=== PATIENT | male | born 1970 | race Caucasian/White ===

== ENCOUNTER → 2018-08-19 | Outpatient (CLI) | payer OTHER ==
[~2018-08-19] MED LIST: ACETAMINOPHEN-H1 TA2 PO; Augmentin Xr 101 TER PO; HYDROCODONE BIT1 T11 PO; PENICILLIN VK500 MG PO; Peridex 473 ML473 ML PO
== END | disposition home or self-care (01) ==
LOC: US 08:44
DX: R10.11 Right upper quadrant pain (principal); M79.604 Pain in right leg; M79.605 Pain in left leg; R20.0 Anesthesia of skin; R20.2 Paresthesia of skin; R74.0 Nonspecific elevation of levels of transaminase and lactic acid dehydrogenase [LDH]

== ENCOUNTER → 2018-09-22 | Outpatient (CLI) | payer OTHER ==
[2018-09-22 13:37] LABS: BASO # 0.1 10*3/uL (0.0-0.1); BASO % 1.1 % (0.0-1.0); EOS % 0.6 % (1.0-4.0); HEMATOCRIT 42.2 % (42.0-52.0); HEMOGLOBIN 14.8 g/dl (14.0-18.0); LYMPH # 2.1 10*3/uL (1.3-4.4); LYMPH % 31.6 % (27.0-41.0); MEAN CELL VOLUME 96.8 fl (80.0-94.0); MEAN CORPUSCULAR HGB 33.9 pg (27.0-31.0); MEAN CORPUSCULAR HGB CONC 35.1 g/dl (33.0-37.0); MEAN PLATELET VOLUME 9.8 fl (9.6-12.3); MONO # 0.8 10*3/uL (0.1-1.0); MONO % 11.8 % (3.0-9.0); NEUT # 3.6 10*3/uL (2.3-7.9); NEUT % 54.6 % (47.0-73.0); PLATELET COUNT AUTOMATED 129 10*3/uL (130-400); RED BLOOD COUNT 4.36 10*6/uL (4.50-5.90); RED CELL DISTRI WIDTH 13.9 % (0-14.5); WHITE BLOOD COUNT 6.6 10*3/uL (4.8-10.8)
[2018-09-22 14:03] LABS: ALBUMIN 3.6 gm/dl (3.1-4.5); ALKALINE PHOSPHATASE 106 U/L (45-117); BUN 4 mg/dl (7-24); CHLORIDE 100 mmol/L (98-107); CREATININE 0.69 mg/dL (0.70-1.30); POTASSIUM 3.8 mmol/L (3.5-5.1); SGOT/AST 80 IU/L (3-35); SGPT/ALT 80 U/L (12-78); SODIUM 136 mmol/L (136-145)
[2018-09-23 06:08] LABS: HEPATITIS B SURFACE AG Negative (Negative); HEPATITIS C VIRUS ANTIBODY <0.1 s/co (0.0-0.9)
== END | disposition home or self-care (01) ==
LOC: LAB 12:41
PROVIDERS: Family Medicine
DX: G63 Polyneuropathy in diseases classified elsewhere (principal)

== ENCOUNTER 2019-06-01 03:15 | Inpatient (IN) | payer OTHER ==
[~2019-06-01] VITALS: Ht 177.8 cm; Wt 57.4 kg
[2019-06-01] VITALS (10 sets, daily range): BP systolic 114–148; BP diastolic 57–98
--- NOTE | ~2019-06-01 | PR ---
[place], [place] PROGRESS NOTE NAME: BELEN RIVERA UNIT #: [id number] ROOM: 506 DOCTOR: KATRINA ROD,MARRY BIRTHDATE: [birth year] DOS: 06/06/2019 ADDENDUM This is an addendum to the progress note done by the resident, Dr. Maldonado. I had the [id number] encounter with the patient. I agree with the assessment and plan. I co-formulated the plan with the resident. I reviewed the labs and imaging, made the necessary changes in the note. Marry Herndon MD CM:PNTRANS [id number] MARRY HERNDON MD 06/30/19 0612 interface
--- NOTE | ~2019-06-01 | EKG ---
[place], [place] ELECTROCARDIOGRAM REPORT NAME: BELEN RIVERA UNIT #: [id number] ROOM: [facility] DOCTOR: CHIDI DRAFT REPORT BIRTHDATE: [birth year] [facility] Test Date: 2019-06-01 Test Time: 03:51:41 Pat Name: BELEN RIVERA Department: Room: [facility] Gender: M [employer] Worker: : 1970 Requested By: JULIA WILLIAM Order Number: [id number] Reading MD: Roldan Mendez MD Measurements Intervals [place] Rate: 108 P: 56 WV: 160 QRS: 31 QRSD: 83 T: 66 QT: 325 QTc: 436 Interpretive Statements Sinus tachycardia Borderline T abnormalities, lateral leads Borderline ST elevation, anterior leads No previous ECG available for comparison Electronically Signed On 06-01-2019 11:22:36 PDT by Roldan Mendez MD CM:EKGRPT:ELECTROCARDIOGRAM REPORT [id number] JULIA IRAHETA DRAFT REPORT JULIA WILLIAM DO
--- NOTE | ~2019-06-01 | CON ---
[place], [place] REPORT OF CONSULTATION NAME: BELEN RIVERA UNIT #: [id number] ROOM: [facility] DOCTOR: MARRY BURGOS MD BIRTHDATE: [birth year] DOS: 06/04/2019 REASON FOR CONSULTATION: Pneumonia. CHIEF COMPLAINT: Acute onset seizure. HISTORY OF PRESENT ILLNESS: This is a 48-year-old male, heavy alcoholic, presenting with a seizure. Currently, he is in the ICU closely monitored. He had episodes of confusion, right now he is able to provide some history. Overnight, he had some high-grade temperatures T-max of 102.0. His labs reveal leukocytosis of 14.2. His chest x-ray is now showing right lower lobe questionable opacities. Initially, he was kept on vancomycin and Zosyn. Currently, he is on clindamycin. ID has been consulted for further management. PAST MEDICAL HISTORY: Significant for dental abscess, facial abscess, facial cellulitis, polyneuropathy, lower extremity. PAST SURGICAL HISTORY: None. SOCIAL HISTORY: Alcoholic, smoker. No illicit drug use. FAMILY HISTORY: Father had hypertension. Brother hypertension. ALLERGIES: No known drug allergies. MEDICATIONS: Reviewed. REVIEW OF SYSTEMS: Twelve-point review of system is done. Pertinent negative and positive included in HPI, rest are noncontributory. PHYSICAL EXAMINATION: VITAL SIGNS: Current vitals include temperature 99.0, pulse rate 98, respiratory rate 24, blood pressure 163/101. Oxygen saturation 100% on room air. GENERAL: The patient is alert, oriented x 2, not completely oriented. He is still having some nonpurposeful movement of her hands. HEENT: Atraumatic, normocephalic. PERRLA. EOMI. OROPHARYNX: Poor dentition. RESPIRATORY: Air entry bilaterally equal. Mild crackles at the right lower lung. CARDIOVASCULAR: S1, S2, tachycardic. ABDOMEN: Soft, nontender, nondistended. Bowel sounds present. EXTREMITIES: No pedal edema. LABORATORY DATA AND IMAGING: Reviewed, mentioned in HPI. ASSESSMENT: 1. Aspiration pneumonia in an alcoholic. 2. Seizure disorder. 3. Delirium tremens. [place], [place] REPORT OF CONSULTATION NAME: BELEN RIVERA UNIT #: [id number] ROOM: [facility] DOCTOR: KATRINA ROD,MARRY BIRTHDATE: [birth year] PLAN: At this time, he does have some high-grade fevers, leukocytosis, questionable developing right lower lobe infiltrate. I will keep him on Unasyn to cover for community-acquired organisms. Repeat chest x-ray in 2-3 days. Check strep and Legionella urine antigen. Check CRP. Thank you for your consult. Please call for any questions. Marry Burgos MD CM:CONSTR:REPORT OF CONSULTATION [id number] 06/05/19 0017 interface
[2019-06-01 03:48] LABS: BASO # 0.1 10*3/uL (0.0-0.1); BASO % 0.5 % (0.0-1.0); EOS % 0.1 % (1.0-4.0); HEMATOCRIT 42.1 % (42.0-52.0); HEMOGLOBIN 14.9 g/dl (14.0-18.0); LYMPH # 1.1 10*3/uL (1.3-4.4); LYMPH % 11.1 % (27.0-41.0); MEAN CELL VOLUME 98.6 fl (80.0-94.0); MEAN CORPUSCULAR HGB 34.9 pg (27.0-31.0); MEAN CORPUSCULAR HGB CONC 35.4 g/dl (33.0-37.0); MEAN PLATELET VOLUME 9.2 fl (9.6-12.3); MONO # 1.2 10*3/uL (0.1-1.0); MONO % 11.9 % (3.0-9.0); NEUT # 7.7 10*3/uL (2.3-7.9); NEUT % 75.9 % (47.0-73.0); PLATELET COUNT AUTOMATED 145 10*3/uL (130-400); RED BLOOD COUNT 4.27 10*6/uL (4.50-5.90); RED CELL DISTRI WIDTH 13.6 % (0-14.5); WHITE BLOOD COUNT 10.2 10*3/uL (4.8-10.8)
[2019-06-01 04:06] LABS: ALBUMIN 3.2 gm/dl (3.1-4.5); ALKALINE PHOSPHATASE 125 U/L (45-117); BUN 4 mg/dl (7-24); CHLORIDE 91 mmol/L (98-107); CREATININE 0.87 mg/dL (0.70-1.30); POTASSIUM 3.4 mmol/L (3.5-5.1); SGOT/AST 30 IU/L (3-35); SGPT/ALT 29 U/L (12-78); SODIUM 127 mmol/L (136-145); TOTAL PROTEIN 8.3 gm/dL (6.4-8.2)
[2019-06-01 04:10] LABS: ACETAMINOPHEN (TYLENOL) < 2.0 ug/ml (10-30); ETHYL ALCOHOL < 3.0 mg/dl (<3); TROPONIN I < 0.015 ng/ml (<0.045)
--- NOTE | 2019-06-01 04:39 | NUR ---
PATIENT ALERT AND ORIENTED AT THIS TIME. PATIENT AWAKE IN BED TALKING WITH FAMILY AT BEDSIDE. RESP EASY AND NONLABORED. NO DISTRESS NOTED. RN WILL CONT TO MONITOR
[2019-06-01 05:05] LABS: BILIRUBIN NEGATIVE (NEGATIVE); BLOOD NEGATIVE (NEGATIVE); CLARITY SL CLOUDY (CLEAR); COLOR YELLOW (YELLOW); GLUCOSE NEGATIVE (NEGATIVE); KETONE NEGATIVE (NEGATIVE); LEUKO ESTERASE NEGATIVE (NEGATIVE); NITRITE NEGATIVE (NEGATIVE); SPECIFIC GRAVITY 1.015 (1.005-1.030)
[2019-06-01 05:11] LABS: RBC 0-2 rbc/hpf (0-2)
[2019-06-01 05:12] LABS: BACTERIA 2+; HYALINE CAST 0-2
[2019-06-01 05:14] LABS: URINE AMPHETAMINES < 1000 (1000ng/ml); URINE BARBITURATES < 200 (200ng/ml); URINE BENZODIAZEPINES < 200 (200ng/ml); URINE CANNABINOIDS (THC) < 50 (50ng/ml); URINE COCAINE < 300 (300ng/ml); URINE METHADONE < 300 (300ng/ml); URINE OPIATES < 300 (300ng/ml); URINE PHENCYCLIDINE < 25 (25ng/ml)
--- NOTE | 2019-06-01 06:20 | NUR ---
A 48, admitted to ICCU, under the services of FARZAD Weber DO with a diagnosis of HYPONATREMIA. Chief complaint is ETOH WITHDRAWL/SEIZURE. Patient arrived via bed from ER. Monitor applied. Initial assessment completed. Vital signs taken and recorded. FARZAD WEBER DO notified of admission to the unit. Orders received. See assessment for past medical history, medications and allergies. Patient and/or family oriented to unit. [facility] ICCU visitation policy reviewed. Clothing/patient valuable form completed. NILES SHELLEY
--- NOTE | 2019-06-01 06:29 | NUR ---
SCAB NOTED TO THE RIGHT KNEE, NO DRAINAGE NOTED, NOTHING OPEN. NO PHOTO TAKEN
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
--- NOTE | 2019-06-01 09:21 | NUR ---
MEDICATED WITH ATIVAN 2MG IV FOR RESTLESSNESS, HAND TREMORS AND SOME CONFUSION.
--- NOTE | 2019-06-01 10:32 | NUR ---
Occupational therapy eval attempted but patient was resting in his room. Nurse asked that he be left to sleep at this time as he was recently medicated because of alcohol withdrawal. Will attempt OT eval at a later date. Nu Nam S/OT Karuna Baxter OTR/L
--- NOTE | 2019-06-01 10:32 | NUR ---
PHYSICAL THERAPY Patient sleeping. Nursing reports patient was recently medication, and requests PT try again later. Will attempt at a later time/date. Thank you. Mariza Azul,PT,DPT.
--- NOTE | 2019-06-01 12:38 | NUR ---
WOKE UP TO TAKE MED'S THEN FELL BACK ASLEEP.
--- NOTE | 2019-06-01 13:34 | NUR ---
Occupational therapy eval attempted but patient was still resting in his room. Nurse asked that he be left to sleep at this time as he was recently medicated because of alcohol withdrawal. Will attempt OT eval at a later date. Nu Nam S/OT Karuna Baxter OTR/L
--- NOTE | 2019-06-01 13:34 | NUR ---
PHYSICAL THERAPY Physical therapy evaluation attempted. Patient sleeping at this time. Nursing request to hold on PT this afternoon to allow patient to sleep following medications earlier this date. Will try again at a later date. Thank you. Mariza Azul,PT,DPT.
--- NOTE | 2019-06-01 20:05 | NUR ---
PT LAYING ON LT SIDE. BED EXIT ALARM REMAINS ON FOR PT SAFETY.
--- NOTE | 2019-06-01 23:09 | NUR ---
NICOTROL INHALER PER PT REQUEST. BED EXIT ALARM REMAINS ON.
[2019-06-02] VITALS: BP 124/60
[2019-06-02 04:00] VITALS: BP 140/90
--- NOTE | 2019-06-02 04:05 | NUR ---
BED EXIT ALARM SOUNDS. PT AWAKE, MONITOR LEADS OFF, STATES "GOING TO MY ROOM." REORIENTED PT AND PT STATES "I KNOW THAT. MY BROTHER LIVES RIGHT AROUND THE CORNER." PT TREMULOUS, EYES WIDE OPEN, C/O CAN'T SLEEP "BECAUSE OF THE ARCADE AND THE CLOWNS GIGGLING OUT THERE." MEDICATED WITH ATIVAN. INSTRUCTED NOT TO GET OOB WITHOUT ASSISTANCE. BED EXIT REMAINS ON.
--- NOTE | 2019-06-02 05:06 | NUR ---
PT VOIDED IN URINAL AND ALL OVER HIMSELF AND BED. GOWN, NEW PAJAMA BOTTOMS, AND ALL LINENS CHANGED. PT WITH TREMORS, CONFUSED, AND UNCOOPERATIVE. ST 120'S - 130'S. ATIVAN AT 0400 NOT EFFECTIVE.
--- NOTE | 2019-06-02 05:10 | NUR ---
UPDATED SHIFT DIRECTOR ON PT STATUS.
--- NOTE | 2019-06-02 06:15 | NUR ---
PT STATED HE WAS LEAVING. CONTINUES TO PULL IV PATCHES OFF AND ATTEMPT TO GET OOB. DR BAUER NOTIFIED OF PT'S INCREASED AGITATION AND DESIRE TO LEAVE.
--- NOTE | 2019-06-02 06:17 | NUR ---
PT WAS GIVEN IV ATIVAN AT [address] XAVIER REPLACING MONITOR PATCHES/LEADS AND REEXPLAINING PLAN OF CARE TO PT. BED EXIT ALARM REMAINS ON.
--- NOTE | 2019-06-02 06:25 | NUR ---
PT ONLY SLIGHTLY CALMER SINCE ATIVAN AT 0610. HE IS STARTING TO HALLUCINATE AND TALK TO OTHERS NOT THERE.
[2019-06-02 06:46] LABS: ALBUMIN 2.9 gm/dl (3.1-4.5); BASO # 0.1 10*3/uL (0.0-0.1); BASO % 0.6 % (0.0-1.0); BUN 6 mg/dl (7-24); CHLORIDE 101 mmol/L (98-107); CREATININE 0.68 mg/dL (0.70-1.30); EOS # 0.1 10*3/uL (0.0-0.4); EOS % 0.9 % (1.0-4.0); HEMATOCRIT 38.3 % (42.0-52.0); LYMPH # 2.6 10*3/uL (1.3-4.4); LYMPH % 24.1 % (27.0-41.0); MEAN CORPUSCULAR HGB 34.9 pg (27.0-31.0); MEAN CORPUSCULAR HGB CONC 33.9 g/dl (33.0-37.0); MEAN PLATELET VOLUME 10.6 fl (9.6-12.3); MONO # 0.9 10*3/uL (0.1-1.0); MONO % 8.9 % (3.0-9.0); NEUT # 6.9 10*3/uL (2.3-7.9); NEUT % 65.2 % (47.0-73.0); PLATELET COUNT AUTOMATED 138 10*3/uL (130-400); POTASSIUM 3.4 mmol/L (3.5-5.1); RED BLOOD COUNT 3.72 10*6/uL (4.50-5.90); RED CELL DISTRI WIDTH 13.6 % (0-14.5); SGOT/AST 118 IU/L (3-35); SGPT/ALT 78 U/L (12-78); SODIUM 137 mmol/L (136-145); TOTAL PROTEIN 7.5 gm/dL (6.4-8.2); WHITE BLOOD COUNT 10.6 10*3/uL (4.8-10.8)
[2019-06-02 06:47] LABS: ALKALINE PHOSPHATASE 104 U/L (45-117)
--- NOTE | 2019-06-02 06:53 | NUR ---
LAYING SIDEWAYS IN BED. PULLING AT MONITOR PATCHES. TALKING TO SELF. + TREMORS...ATIVAN GIVEN ORDERED.
[2019-06-02 08:00] VITALS: BP 133/91
--- NOTE | 2019-06-02 09:10 | NUR ---
CONTINUES TO PULL CLINIC MGR OFF, RESTLESS. KICKING LEGS OVER SODE OF BED. MEDICATED WITH PO VISTARIL ORDERED
--- NOTE | 2019-06-02 11:00 | NUR ---
MOVED OVER TO ICCU BED 9 TO KEEP CLOSER OBSERVATION.
[2019-06-02 12:00] VITALS: BP 115/83
--- NOTE | 2019-06-02 12:15 | NUR ---
IV started right forearm with #22 protective cath after 1 attempts. Site prepped with Chloroprep. Sterile dressing applied. Patient tolerated procedure well. PATIENT AGGITATED AND TRYING TO CLIMB OUT OF THE BED. JEANNETTE AGUILAR
--- NOTE | 2019-06-02 13:42 | NUR ---
IV PHENOBARB GIVEN AFTER COMPLETE BED CHANGE D/T INCONTINENCE OF URINE. IV SITE ASYMPTOMATIC. PT HAD REFUSED TO USE URINAL AND IS UNABLE TO EVEN SIT UP FULLY ON THE SIDE OF THE BED. VISITOR AT BEDSIDE AT PRESENT
--- NOTE | 2019-06-02 13:48 | NUR ---
NICOTINE PATCH APPLIED TO RT SHOULDER
--- NOTE | 2019-06-02 14:15 | NUR ---
RESTING COMFORTABLY IN BED WITH EYES CLOSED. RESPIRATIONS EASY AND NON-LABORED. PHENOBARBITOL EFFECTIVE.
[2019-06-02 16:00] VITALS: BP 153/100
--- NOTE | 2019-06-02 16:00 | NUR ---
RESTLESS. INCONTINENT OF LARGE AMOUNT URINE. MEDICATED WITH PO LIBRIUM AND PO PHENOBARBITAL.
--- NOTE | 2019-06-02 19:56 | NUR ---
DOZING. IN LINE OF SIGHT OF THIS RN. BODY RELAXED. NO SEIZURE ACTIVITY.
[2019-06-02 20:00] VITALS: BP 112/79
--- NOTE | 2019-06-02 21:39 | NUR ---
LANA CARE DONE AND NEW LINENS. PT AWAKE. MEDS TAKEN WITHOUT DIFFICULTY. PT DISORIENTED AND UNCOOPERATIVE. STIFF & COMBATIVE WHEN TURNING PT TO CHANGE LINENS. IN LINE OF SIGHT OF CCU STAFF.
[2019-06-03] VITALS: BP 146/105
--- NOTE | 2019-06-03 03:00 | NUR ---
ATIVAN AT 0045 FOR AGITATION, PULLING AT IV SITE AND MONITOR PATCHES. FINALLY EFFECTIVE... PT SLEEPING.
[2019-06-03 04:00] VITALS: BP 144/94
--- NOTE | 2019-06-03 06:00 | NUR ---
PT CHECKED FOR INCONTINENCE. OFFERED URINAL BUT PT COMBATIVE. HE BRIEF IS DRY. PT DID TAKE HIS MEDICATION WITH APPLESAUCE AND HAD NO DIFFICULTY. HE WOULD NOT DRINK WATER AND FOUGHT ORAL CARE. HE IS UNCOOPERATIVE AND TRYING TO GET OUT AT THE END OF THE BED DESPITE OUR EFFORTS TO CALM AND REORIENT HIM. DR BAUER NOTIFIED OF AGITATION AND MEDICATIONS GIVEN.
--- NOTE | 2019-06-03 06:20 | NUR ---
SOFT WRIST RESTRAINTS. PT APPEARS CALMER. HAIR WASHED.
[2019-06-03 06:30] LABS: BASO # 0.1 10*3/uL (0.0-0.1); BASO % 0.7 % (0.0-1.0); EOS # 0.1 10*3/uL (0.0-0.4); EOS % 1.1 % (1.0-4.0); HEMATOCRIT 40.3 % (42.0-52.0); HEMOGLOBIN 13.9 g/dl (14.0-18.0); LYMPH % 23.5 % (27.0-41.0); MEAN CELL VOLUME 102.5 fl (80.0-94.0); MEAN CORPUSCULAR HGB 35.4 pg (27.0-31.0); MEAN CORPUSCULAR HGB CONC 34.5 g/dl (33.0-37.0); MEAN PLATELET VOLUME 10.4 fl (9.6-12.3); MONO # 0.9 10*3/uL (0.1-1.0); NEUT # 5.5 10*3/uL (2.3-7.9); NEUT % 64.3 % (47.0-73.0); PLATELET COUNT AUTOMATED 145 10*3/uL (130-400); RED BLOOD COUNT 3.93 10*6/uL (4.50-5.90); RED CELL DISTRI WIDTH 13.4 % (0-14.5); WHITE BLOOD COUNT 8.5 10*3/uL (4.8-10.8)
[2019-06-03 06:34] LABS: BUN 8 mg/dl (7-24); CHLORIDE 101 mmol/L (98-107); CREATININE 0.57 mg/dL (0.70-1.30); POTASSIUM 3.3 mmol/L (3.5-5.1); SODIUM 132 mmol/L (136-145)
--- NOTE | 2019-06-03 06:42 | NUR ---
PT MORE COOPERATIVE BUT CONTINUES TO TREMOR. IV ATIVAN ORDERED.
[2019-06-03 08:00] VITALS: BP 142/92
--- NOTE | 2019-06-03 08:10 | NUR ---
ON ASSESSMENT PT IS AWAKE, MUMBLES INCOHERENTLY. 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 KNOWS THE PRESIDENT IS "TRUMP" AND THAT IT'S "MAY" BUT STATES THE YEAR "2011". RESTRAINTS LOOSENED AND HE'S ASSISTED UP INTO BED. BED IS IN LOW POSITION WITH WHEELS LOCKED AND BED EXIT ALARM IS ACTIVATED. HE HAS A VISIBLE TREMOR AND IS TACHYCARDIC AT REST. NO SEIZURE ACTIVITY NOTED.
--- NOTE | 2019-06-03 09:24 | NUR ---
PT NEEDS MUCH ASSISTANCE WITH EATING. HE HAS POOR HAND-MOUTH COORDINATION. PILLS WERE GIVEN WHOLE IN PUDDING. HE CHEWED THOSE BUT NO DIFFICULTY SWALLOWING.
[2019-06-03 13:20] VITALS: BP 128/82
--- NOTE | 2019-06-03 13:22 | NUR ---
PT SLEPT SOUNDLY FOR SEVERAL HOURS. HIS GIRLFRIEND CAME, DID NOT AWAKEN HIM. HIS PARENTS CAME AND DID NOT AWAKEN HIM. AT 1310 HE WAS AWAKE, ATTEMPTING TO GET OUT OF BED. HE WAS AGITATED, TELLING ME TO GET AWAY, PUSHING AT ME. HE WAS COOPERATIVE TO TAKE HIS SCHEDULED LIBRIUM. A PRN DOSE OF PHENOBARB GIVEN FOR HIS AGITATION. HE WOULD NOT LET US CHECK OR CHANGE HIS BRIEF. VITAL SIGNS TAKEN AT THIS TIME. TEMP 101.5 TYMPANIC, CHECKED TWICE. IV FLUIDS STARTED PER ELECTRONIC ORDER.
--- NOTE | 2019-06-03 13:33 | NUR ---
DR LAROSE MADE AWARE OF PT'S AGITATION AND TEMP ELEVATION. ORDERS RECEIVED.
--- NOTE | 2019-06-03 13:53 | NUR ---
IV PHENOBARBITAL 130MG GIVEN PER ORDER.
--- NOTE | 2019-06-03 14:00 | NUR ---
PHYSICAL THERAPY ATTEMPTED PT EVAL TODAY IN ICCU HOWEVER NURSING STAFF STATING HE IS SLEEPING AND SHOULD NOT TRY TO COMPLETE EVAL AT THIS TIME. WILL ATTEMPT AGAIN TOMORROW. THANK YOU FOR REFERRAL STEFANO HIDALGO PT
--- NOTE | 2019-06-03 14:19 | NUR ---
EYES CLOSED BRIEFLY AFTER THE IV PHENOBARB. HE CONTINUES TO MUMBLE AND REMAINS TACHYCARDIC. THE LEFT LEG ONLY IS RESTRAINED. GIRLFRIEND IN TO VISIT BUT HE APPEARS ASLEEP. NO SEIZURE ACTIVITY.
--- NOTE | 2019-06-03 15:00 | NUR ---
INCONTINENT BRIEF CHANGED FOR LARGE AMOUNT URINE. PT RESISTANT TO REPOSITIONING. HE MUMBLED ABOUT ICE CREAM BUT WHEN I ATTEMPTED TO FEED IT TO HIM, HE GRABBED BY WRIST,GROWLED AT ME, AND PUSHED ME AWAY.
--- NOTE | 2019-06-03 15:12 | NUR ---
FED HIM TWO BITES OF ICE CREAM.
--- NOTE | 2019-06-03 15:18 | NUR ---
DR LAROSE IN TO SEE PATIENT. HR REMAINS ELEVATED AND PT PICKING AT THE LINENS. IV ATIVAN 2MG GIVEN PER HIS DIRECTION.
--- NOTE | 2019-06-03 15:53 | NUR ---
SLEEPING AT PRESENT.
--- NOTE | 2019-06-03 18:24 | NUR ---
DR LAROSE NOTIFIED OF CONTINUED TEMP ELEVATION. PT REMAINS DROWSY FROM EARLIER ATIVAN. VISITORS AT BEDSIDE UPDATED ON PLAN OF CARE.
--- NOTE | 2019-06-03 18:43 | NUR ---
STAT PORTABLE CHEST XRAY AND BLOOD CULTURES DONE. THE ONE TIME 500ML OF SALINE COMPLETE. PT RESISTANT TO XRAY/LAB DRAWS, PUSHING US AWAY. HE REMAINS DROWSY.
--- NOTE | 2019-06-03 18:59 | NUR ---
TYLENOL SUPPOSITORY GIVEN FOR TEMP ELEVATION. REPOSITIONED. BED IN LOW POSITION WITH WHEELS LOCKED. BED EXIT ALARM ACTIVATED.
--- NOTE | 2019-06-03 19:17 | NUR ---
DR LAROSE CALLED IN, HAS REVIEWED CXR FILM AND HAS ENTERED ORDERS ELECTRONICALLY. REPORT PASSED ON TO NEXT SHIFT.
[2019-06-04] VITALS (8 sets, daily range): BP systolic 109–163; BP diastolic 72–101
--- NOTE | 2019-06-04 02:15 | NUR ---
PT COMBATIVE AND ATTEMPTING TO GET OUT OF BED. ALSO YELLING AND CUSSING AT NURSES. MEDICATED WITH PHENOBARB PER PRN ORDER FOR AGITATION/DT'S.
--- NOTE | 2019-06-04 04:30 | NUR ---
PT CHECKED FOR INCONTIMENCE, DIAPER DRY. BLADDER SCANNED FOR >400CC. DR BAUER NOTIFIED AND NEW ORDER FOR ST CATH IF PT ALLOWS AND START NS @ 80CC/HR. PT ST CATHED ORDERED FOR 600CC OF DARK REYES URINE, RONNIE WELL. IF LEAKING AND A NEW 20 GUAGE CATH STARTED IN RIGHT AC WTIH GOOD BLOOD RETURN. PT RESTING IN BED WATCHING TV AT THIS TIME. NO ACUTE DISTRESS NOTED. RESP NONLABORED. NO COMPLAINTS VOICED. PHENOBARB GIVEN EARLIER HAS BEEN EFFECTIVE.
[2019-06-04 04:54] LABS: BASO # 0.1 10*3/uL (0.0-0.1); BASO % 0.5 % (0.0-1.0); EOS # 0.1 10*3/uL (0.0-0.4); EOS % 0.4 % (1.0-4.0); HEMATOCRIT 37.3 % (42.0-52.0); HEMOGLOBIN 12.7 g/dl (14.0-18.0); LYMPH # 1.8 10*3/uL (1.3-4.4); LYMPH % 12.7 % (27.0-41.0); MEAN CELL VOLUME 104.8 fl (80.0-94.0); MEAN CORPUSCULAR HGB 35.7 pg (27.0-31.0); MONO # 1.5 10*3/uL (0.1-1.0); MONO % 10.4 % (3.0-9.0); NEUT # 10.7 10*3/uL (2.3-7.9); NEUT % 75.5 % (47.0-73.0); PLATELET COUNT AUTOMATED 138 10*3/uL (130-400); RED BLOOD COUNT 3.56 10*6/uL (4.50-5.90); RED CELL DISTRI WIDTH 13.6 % (0-14.5); WHITE BLOOD COUNT 14.2 10*3/uL (4.8-10.8)
[2019-06-04 05:06] LABS: BUN 10 mg/dl (7-24); CHLORIDE 104 mmol/L (98-107); CREATININE 0.71 mg/dL (0.70-1.30); POTASSIUM 3.6 mmol/L (3.5-5.1); SODIUM 136 mmol/L (136-145)
--- NOTE | 2019-06-04 06:54 | NUR ---
Shift chart check completed.24 HR chart check completed.
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
--- NOTE | 2019-06-04 08:33 | NUR ---
FED 1/4 PANCAKE, MEDS CRUSHED IN APPLESAUCE AND A FEW SIPS OF ORANGE JUICE. ENCOURAGED CHIN TUCK WITH SWALLOWING. NO STRAWS FOR THE LIQUIDS. SOME COUGH NOTED, ABLE TO CLEAR HIS THROAT.
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
--- NOTE | 2019-06-04 10:09 | NUR ---
SLEEPING EASILY AT THIS TIME.
--- NOTE | 2019-06-04 10:33 | NUR ---
PHYSICAL THERAPY Physical therapy evaluation attempted. Patient sleeping and unable to participate at this time, per nursing. Will try again at a later time/date. Thank you. Mariza Azul,PT,DPT.
--- NOTE | 2019-06-04 13:26 | NUR ---
PT POSITIONED IN BED, WITH MUCH REPETITION OF INSTRUCTIONS AND I FED HIM HIS LUNCH. HE DID MUCH BETTER THAN BREAKFAST. OCCASIONAL REMINDERS TO TUCK HIS CHIN. HE ATE ALL OF HIS BOWL OF POTATO SOUP AND ALL OF HIS ICE CREAM. WHEN I LEFT THE BEDSIDE TO OBTAIN A NICOTENE PATCH FOR HIM HE GRABBED THE PERLA AMANDA AND SPILLED ENTIRE GLASS IN BED. COMPLETE BED CHANGE. BRIEF CHANGED FOR LARGE AMOUNT URINE. PT COOPERATIVE DURING THESE ACTIVITIES. POSITIONED FOR COMFORT AND WARM BLANKET APPLIED. BED IS IN LOW POSITION WITH WHEELS LOCKED. BED EXIT ALARM IS ACTIVATED. THE VANCO TROUGH DRAWN THIS AM WAS THERAPEUTIC AT 16, THEREFORE NOON VANCOMYCIN DOSE GIVEN.
--- NOTE | 2019-06-04 13:40 | NUR ---
[facility] OFFICE NOTIFIED OF CONSULTATION. OT HERE. PT IS COOPERATIVE WORKING WITH THEM.
--- NOTE | 2019-06-04 13:44 | NUR ---
Occupational Therapy evaluation completed in ICCU with full eval to follow. Precautions include poor safety, balance in sit and standing, poor memory,judgement and insight, impaired ADls including feeding, impaired strength and high complexity level 02469 via chart review, testing and evalaution. Recommend OT per pOC and SNF v.s. home with home health SN, OT,PT and 24 hr supervision and assist depending upon goal attainment. Thank you for this referral. Karuna Baxter OTR/L
--- NOTE | 2019-06-04 13:44 | NUR ---
PHYSICAL THERAPY Physical therapy evaluation complete, ICCU. Full evaluation and details to follow. Physical therapy evaluation Moderate complexity (96337) per chart review and evaluation. PT to continue with bed mobility, static/dynamic balance, transfers, and gait. Recommend SNF at discharge to improve gait, LE strength, and reduce risk for falls. Thank you. Mariza Azul,PT,DPT.
--- NOTE | 2019-06-04 14:24 | NUR ---
PT APPEARS TO BE SLEEPING AT THIS TIME. HIS GIRLFRIEND STOPPED AT DESK, UPDATED ON EVENTS SINCE SHE WAS LAST HERE. SHE DOES NOT AWAKEN HIM.
--- NOTE | 2019-06-04 15:37 | NUR ---
PT GIVEN AN INCENTIVE SPIROMETRY. SSAID NAME AND SHOOK SHOULDER. DID NOT WAKE UP. 100% ONROOM AIR. WILL TRY AGAIN
--- NOTE | 2019-06-04 20:16 | NUR ---
ASSUMED CARE OF PATIENT. RECEIVED REPORT FROM RYNE BOWMAN RN. PATIENT'S ASSESSMENT COMPLETED. VITALS OBTAINED. VITALS STABLE. NO S/S OF DISTRESS. PATIENT PLACED PILLOW OVER OWN FACE TO BLOCK OUT LIGHT. NO S/S OF DISTRESS. CALL LIGHT WITHIN REACH. WITHIN SIGHT OF NURSING STATION. BED ALARM INTACT.
--- NOTE | 2019-06-04 20:34 | NUR ---
PATIENT GIVEN MEDICATTION WITH A SIP OF POP. EVEN WHEN INSTRUCTED TO TUCK CHIN TO SWALLOW, PATIENT STILL COUGHED SOME AFTER SWALLOWING.
--- NOTE | 2019-06-04 21:07 | NUR ---
PULSE OX MOVED TO RIGHT 4TH TOE. PULSE OX READING 98-100% ON RA. PATIENT RESTING COMFORTABLY IN BED. ALARM ARMED.
--- NOTE | 2019-06-04 22:16 | NUR ---
CHANGED AND REPOSITIONED PATIENT. TOLERATED WELL. NO S/S OF DISTRESS, CALL LIGHT IN REACH. IN SIGHT OF NURSING STATION.
--- NOTE | 2019-06-05 00:31 | NUR ---
PATIENT RECEIVED BEDBATH, HAIR WASHED. SHEETS CHANGED.
[2019-06-05 04:00] VITALS: BP 146/95
[2019-06-05 04:37] LABS: BASO # 0.1 10*3/uL (0.0-0.1); BASO % 0.7 % (0.0-1.0); EOS # 0.1 10*3/uL (0.0-0.4); EOS % 1.1 % (1.0-4.0); HEMATOCRIT 34.1 % (42.0-52.0); HEMOGLOBIN 11.4 g/dl (14.0-18.0); LYMPH # 1.7 10*3/uL (1.3-4.4); MEAN CELL VOLUME 103.6 fl (80.0-94.0); MEAN CORPUSCULAR HGB 34.7 pg (27.0-31.0); MEAN CORPUSCULAR HGB CONC 33.4 g/dl (33.0-37.0); MEAN PLATELET VOLUME 10.1 fl (9.6-12.3); MONO # 1.4 10*3/uL (0.1-1.0); MONO % 13.6 % (3.0-9.0); NEUT # 7.2 10*3/uL (2.3-7.9); NEUT % 68.1 % (47.0-73.0); PLATELET COUNT AUTOMATED 149 10*3/uL (130-400); RED BLOOD COUNT 3.29 10*6/uL (4.50-5.90); RED CELL DISTRI WIDTH 13.5 % (0-14.5); WHITE BLOOD COUNT 10.6 10*3/uL (4.8-10.8)
--- NOTE | 2019-06-05 04:57 | NUR ---
[place] CATHETER PLACED TO COLLECT URINE SPECIMEN. PATIENT TOLERATED. NO S/S OF DISTRESS. CALL LIGHT IN REACH. WITHIN SIGHT OF NURSING STAFF. PATIENT IS MUCH MORE COHERENT THAN HE HAS BEEN.
[2019-06-05 05:05] LABS: ALBUMIN 2.5 gm/dl (3.1-4.5); ALKALINE PHOSPHATASE 82 U/L (45-117); BUN 3 mg/dl (7-24); CHLORIDE 103 mmol/L (98-107); CREATININE 0.62 mg/dL (0.70-1.30); PHOSPHOROUS 3.2 mg/dL (2.5-4.9); POTASSIUM 2.9 mmol/L (3.5-5.1); SGOT/AST 20 IU/L (3-35); SGPT/ALT 33 U/L (12-78); SODIUM 138 mmol/L (136-145); TOTAL PROTEIN 6.9 gm/dL (6.4-8.2)
--- NOTE | 2019-06-05 05:41 | NUR ---
PATIENT RESTING WITH EYES CLOSED IN BED. RESP EASY. VITALS STABLE. NO S/S OF DISTRESS. PATIENT HAS BEEN RATHER COOPERATIVE WITH CARE. PULSE OX MOVED TO 3RD TOE ON LEFT FOOT. 100% ON RA. HR 102 PER CM. BED ALARM ARMED AND CALL LIGHT IN REACH.
--- NOTE | 2019-06-05 05:50 | NUR ---
PATIENT GIVEN WATER BY MOUTH VIA WATER BOTTLE. TOLERATED WELL WITH MINIMAL COUGHING. PATIENT INSTRUCTED ON USE OF INCENTIVE SPIROMETER.
--- NOTE | 2019-06-05 07:05 | NUR ---
Shift chart check completed.24 HR chart check completed.
--- NOTE | 2019-06-05 07:38 | NUR ---
ON ASSESSMENT PATIENT IS MUCH MORE ALERT THIS AM. HIS SPEECH STRONGER AND CLEARER. WHEN QUESTIONED ABOUT WHERE HE IS HE SAY "[facility]". REORIENTED EASILY. IS COOPERATIVE. REINFORCED INSTRUCTIONS ABOUT INCENTIVE SPIROMETRY AND HE PERFORMED THIS. THE REPEAT PORTABLE CXR HAS BEEN DONE. HIS BED IS IN LOW POSITION WITH WHEELS LOCKED AND BED EXIT ALARM ACTIVATED. HIS CONDOM CATHETER IS INTACT. EXPLANATIONS REINFORCED ABOUT WHY HE'S HERE AND EVENTS OF THE WEEKEND. HE APOLOGIZES "FOR BEING A JERK". SEE ALL APPROPRIATE INTERVENTIONS.
[2019-06-05 08:00] VITALS: BP 128/80
--- NOTE | 2019-06-05 10:00 | NUR ---
Tig Welder in to see patient. He is sitting up in his bedside chair. He is grasping at things in the air. Will follow up at a later time. Discharge plan undecided at this time.
--- NOTE | 2019-06-05 10:10 | NUR ---
OT NOTE Pt was seen this A.M. 1:1 for 25 minute OT session. Prior to start of session spoke with pt's nurse Melba who reported that pt was okay to participate at this time. Upon arrival pt was sitting upright in the recliner. Pt identified by name and and had no complaints at this time. Pt presented to therapy with IV in RUE, body alarm activated, and on room air. Pt's resting heart rate was 103 bpm and SpO2 was 99%. Pt completed multiple sit to stand transfers from chair level with maxA X 2 and use of w/w for UE support. Pt required max verbal and tactile prompts for proper hand placement for improved technique, pt had poor carry over throguhout resulting in max tactile prompts. Challenged pt's static standing tolerance needed for increased I in self care tasks and functional transfers, pt was able to tolerate aprox 2 minutes at a time before sitting due to fatigue. Throughout static stands pt required mod-maxA X 2 to maintain and correct R lateral lean, retrograde posture, and B knee buckle. Pt then completed another sit to stand with maxA X 2 and poor carry over of hand placement followed by stand pivot from recliner to bedside commode with maxA X 2 and use of w/w for UE support. While sitting upright on the bedside commode pt required maxA to correct R lateral lean. Stand pivot then completed back to the recliner from the bedside commode with maxA x 2 and use of w/w. While sitting upright in the recliner pt completed BUE towel exercises over all planes of motion for 1 X 15 with emphasis on triceps for increased I in self care tasks and functional transfers. Throughout activity pt's heart rate was 110 bpm. Pt was left sitting upright in the recliner with call light in hand, body alarm on for safety, tray table in place, ICCU nurse notified, and resting heart rate of 97 bpm with SpO2 99%. Continue with rec D/c plan to SNF. KAILYN Wiggins
--- NOTE | 2019-06-05 10:14 | NUR ---
PHYSICAL THERAPY Patient presented to therapy in sitting position with no compalints. Patient's Nurse's cleared him for therapy. Patient has catheter and connected to wall monitor. Patient' pulse 107 in sitting and O2 98%. Patient transfers sit to stand with MAX A X 2 with MAX VERBAL CUES for pushing off the armrests of chair with hands. Patient stands at Walker with MOD A X 2 to at times, MAX A X 2, with MAX VERABL CUES for locking knees into extension, upright posture, pushing down on walker with hands and bringing hips forwards into extension. Patient required these verbal cues continuously. Patient stood at Walker for 2 minutes with MOD A X 2 to MAX A X 2 WITH THE ABOVE VERBAL CUES REQUIRED. Patient performed stand to sit into bedside chair with MAX A X 2. Patient sit to stand again from bedside chair with MAX A X 2. Patient stand pivot transfer to bedside other chair with MAX A X 2 and patient not lifting feet to advance feet for turn. Patient sit to stand from other chair with MAX A X 2. Patient sat in bedside chair and performed bilateral lateral LE ther ex 2 x 10 reps each in all planes of movement for strengthening the hips and LEs in order to improve patient's functional mobility. Patient VITALS WERE RECORDED PULSE:99 , O2 = 100%, AND RESPIRATIONS = 22. Patient was left in bedside chair with call light within reach, chair alarm tested and attached to patient , and NURSES present with patient. Patient was 1:1 with this CLIENT ADVOCATE for 25 minutes total. JOSE HUNTLEY CLIENT ADVOCATE
--- NOTE | 2019-06-05 10:37 | NUR ---
PT/OT HERE TO SEE PATIENT. HE REMAINS UP IN CHAIR.GIRLFRIEND HERE TO SEE PT.
--- NOTE | 2019-06-05 11:19 | NUR ---
BACK TO BED. PT USED WALKER. POOR WT BEARING.MAX ASSIST NEEDED. BED IN LOW POSITION WITH WHEELS LOCKED.
[2019-06-05 16:00] VITALS: BP 143/87
--- NOTE | 2019-06-05 18:27 | NUR ---
FAMILY BROUGHT IN FOOD AND HE ATE WELL. CONDOM CATHETER INTACT. NO SEIZURE ACTIVITY.
[2019-06-05 20:00] VITALS: BP 119/81
--- NOTE | 2019-06-05 20:09 | NUR ---
1950 RESTING IN BED WITH HOB ELEVATED. SIDE RAILS UP X'S 2. CALL LIGHT IN REACH. BED ALARM INTACT. IV FLUIDS CONT. PULSE OX 99% ON RA. REMAINS WEAK. ALERT AND COOPERATIVE. FOLLOWS COMMANDS. NO DISTRESS NOTED.
--- NOTE | 2019-06-05 22:21 | NUR ---
RESTING IN BED WITH EYES CLOSED. APPEARS TO BE SLEEPING.
[2019-06-06] VITALS: BP 137/91
[2019-06-06 04:00] VITALS: BP 144/88
--- NOTE | 2019-06-06 04:35 | NUR ---
AWAKE. AM BLOOD WORK DRAWN. STATES "DID I MISS LUNCH" REORIENTED TO TIME. REMAINS WITHOUT C/O'S.
[2019-06-06 05:10] LABS: BUN 4 mg/dl (7-24); CHLORIDE 108 mmol/L (98-107); CREATININE 0.58 mg/dL (0.70-1.30); POTASSIUM 3.5 mmol/L (3.5-5.1); SODIUM 140 mmol/L (136-145)
--- NOTE | 2019-06-06 06:17 | NUR ---
RESTING IN BED, DRAWING ON PAPER, PER REQUEST. ALERT. IV FLUIDS CONT. [place] CATH INTACT. CONDITION GUARDED.
[2019-06-06 08:00] VITALS: BP 146/81
--- NOTE | 2019-06-06 08:34 | NUR ---
Spoke to mother, Elidia, at [phone] regarding discharge planning. Elidia and patient's girlfriend, Lana, will be here about 5-6pm tonight and will discuss with nursing discharge planning. Lana is working daylight this week. Per Elidia Lana alternates shifts. Will await family and patient's decision regarding home with home health care services or a short term SNF.
--- NOTE | 2019-06-06 08:54 | NUR ---
Awake and alert. Breakfast ordered and taken well.
--- NOTE | 2019-06-06 09:00 | NUR ---
PHYSICAL THERAPY Patient seen this am 1;1 for therapy visit and was supine in bed upon therapist arrival. Patient presented with continuos IV treatment and reports feeling very tired / weak. Patient transfers supine to sit EOB, Mod A and performed several sit to stand transfers at bedside with MOD A. Patient completed SPT to BS with MOD A and use of wh walker standing support, demonstrating "slouched" upright posture. Patient fatigues quickly and was also able to take 3-4 steps this session prior to returning to bedside chair. Patient remained in bedside chair under OT central supply assistant Supervision as she arrived for her visit. Will continue per POC as tolerated, total treatment time 14 minutes. Shawn Jose, BEVERAGE STEWARD
--- NOTE | 2019-06-06 09:30 | NUR ---
OT NOTE Pt was seen this A.M. 1:1 for 45 minute OT session. Upon arrival pt was supine in bed with head of bed elevated. Pt identified by name and and had no complaints at this time. Pt presented to therapy with IV in his RUE which he remained on throughout entire session, on room air with SpO2 99%, and resting heart rate of 98 bpm. Pt's breakfast tray was served which he was able complete self feeding with supervision after set up of tray. Pt was able to manage all utensils with supervision using his L hand and managed all drinks with lids and straws. Pt then transferred supine to sit EOB with modA for assist with UB. While sitting EOB challenged pt's static sitting balance needed for enhanced safety, pt was able to maintain F-/P+ sitting balance requiring min-modA to correct retrograde posture and R lateral lean. Pt then completed multiple sit to stand transfers from bed level with modA X 2 and use of w/w for UE support. Pt required constant/max verbal and tactile prompts to correct upright posture, B knee buckle, and proper hand placement. Pt had poor carry over throughout. Challenged pt's static standing tolerance needed for increased I in self care tasks and functional transfers, pt was able to tolerate aprox 2 minutes at a time before sitting due to fatigue. Pt then completed a stand pivot transfer from EOB to the bedside commode then from bedside commode to the recliner, all completed with modA X 2 and maxA for walker management. While sitting on the commode pt required modA to correct R lateral lean. While seated in the recliner pt doffed B socks with CGA and verbal prompts for following commands/sequencing, gown was doffed with Dakota due to IV line. Pt then completed LB bathing with Dakota due to poor sequencing, poor safety with forward flexion, and being impulsive increasing risk of falls. UB bathing completed with SBA after set up. Pt then donned new socks and gown with Dakota. Sit to stand completed from chair level with modA X 2 and use of w/w for UE support while nursing staff completed luis care with maxA due to being unable to stand without UE support. Throughout all activities pt's heart rate was 103-111 bpm and was left with a resting heart rate of 101 bpm. Pt was left sitting upright in the recliner with call light in hand, tray table in place, body alarm on for safety, and [facility] staff notified. Continue with rec D/C plan to SNF. SUNIL Wiggins/Monik
--- NOTE | 2019-06-06 11:34 | NUR ---
Dr. Lowry in to [facility]. Spoke at length w/ pt. and family as to plan of care. all agreeable. Order for transfer to med surg recieved. Monitor dc'd .IV re-start pending.
--- NOTE | 2019-06-06 11:41 | NUR ---
Spoke to girlfriend, Lana, who is at patient's bedside regarding short term SNF and she and patient are agreeable. When provided with a list of facilities they chose [facility]. strategic planner notified.
--- NOTE | 2019-06-06 11:44 | NUR ---
PHYSICAL THERAPY Duplicate Physical Therapy order received. Patient already on PT caseload. Discharge PT order. Thank you. Mariza Azul,PT,DPT.
--- NOTE | 2019-06-06 11:47 | NUR ---
Duplicate Occupational Therapy referral received. Patient currently on OT caseload. Thank you. aKruna Baxter OTR/hien
[2019-06-06 12:00] VITALS: BP 126/82
--- NOTE | 2019-06-06 12:06 | NUR ---
Patient requesting referral to [facility], contacted facility and faxed referral. Waiting on review/acceptance.
--- NOTE | 2019-06-06 13:07 | NUR ---
Transfer to 506-2 pending . Family present, Report called to Reggie QUIROZ. Osorio Homer rep here for evaulation.
--- NOTE | 2019-06-06 13:15 | NUR ---
OT NOTE Attempted to see pt this P.M. for second OT session and upon arrival pt was under nursing care and being prep for transfer to the fifth floor. Will check back at a later time/date and continue with POC as able. SUNIL Wiggins/Monik
--- NOTE | 2019-06-06 13:25 | NUR ---
Exo cath dc'd . IV to RAN dc'd re-start to [place]. Then transferred to [facility]
--- NOTE | 2019-06-06 13:28 | NUR ---
PT arrived to room from [facility]. No complaints at this time. Body alarm in place.
--- NOTE | 2019-06-06 14:25 | NUR ---
PHYSICAL THERAPY CO-SIGN I approve of the Physical Therapy notes written above. GINA BARRETT PT,DPT
[2019-06-06 16:00] VITALS: BP 146/90
--- NOTE | 2019-06-06 19:20 | NUR ---
BEDSIDE REPORT RECEIVED. PT ALERT AND ORIENTED, VOICES NO COMPLAINTS OR NEEDS. LYING IN BED WITH CALL LIGHT IN REACH.
[2019-06-06 20:00] VITALS: BP 119/59
--- NOTE | 2019-06-06 23:22 | NUR ---
24 HR chart check completed.
[2019-06-07] VITALS: BP 133/87
[2019-06-07 07:02] LABS: BUN 7 mg/dl (7-24); CHLORIDE 106 mmol/L (98-107); CREATININE 0.82 mg/dL (0.70-1.30); PHOSPHOROUS 4.3 mg/dL (2.5-4.9); POTASSIUM 3.7 mmol/L (3.5-5.1); SODIUM 140 mmol/L (136-145)
[2019-06-07 08:00] VITALS: BP 154/88
--- NOTE | 2019-06-07 09:00 | NUR ---
Systems Software Developer in to see patient. No new needs or request at this time. When medically stable, accepted, and precert is obtained he will be discharged to [facility]. community development planner following.
--- NOTE | 2019-06-07 10:30 | NUR ---
OT NOTE Pt was seen this A.M. 1:1 for 25 minute OT session. Upon arrival pt was supine in bed. Pt identified by name and and had no complaints at this time other than generalized weakness. Pt was was disoriented to time due to thinking it was 1030 P.M. Pt was able to be reoriented quickly. Pt transferred supine to sit EOB with Dakota for assist with UB. While sitting EOB challenged pt's dynamic sitting balance needed for increased I and enhanced safety. Pt was able to maintain F sitting balance requiring supervision due to occasional LOB to the R that required Dakota to correct. Sit to stand completed from bed level with Dakota X 2 followed by functional mobility into the bathroom with modA COMMERCIAL LEASING AGENT due to being unsteady and reaching for unsafe various items throughout the room. There he transferred on to standard commode with modA due to being impulsive and having poor safety awareness. Pt then transferred off commode with Dakota. Pt stood sink side while washing his hands with CGA. Pt then completed functional mobility back to the recliner with modA COMMERCIAL LEASING AGENT. When transferring into the recliner pt required modA due to attempting to sit before to the chair. Throughout entire session pt was educated on safety awareness and slowing down due to being impulsive and increasing risk of falls, pt had poor carry over. Pt was left sitting upright in the recliner with call light in hand, tray table in place, and body alarm on for safety. Continue with rec D/C plan to SNF. KAILYN Wiggins
--- NOTE | 2019-06-07 11:03 | NUR ---
PHYSICAL THERAPY Patient gives informed consent for treatment. Patient was supine in bed upon this PACU NURSE arriving in the patient's room. Patient has report of feeling stronger. Patient was identified by name and on wristband. Patient performed supine to sitting at EOB transfer with SBA. Patient performed sit to stand from EOB with CGA X 1. Patient ambulated 40' x 1 [address] hallway and back to bedside chair with RISK MANAGEMENT DIRECTOR X 1 and using hand hold on furniture with other hand and verbal cues for locking knees into extension to prevent knee buckling and for upright posture. Patient then sat in bedside chair and performed bilateral LE THER EX in all planes of movement 2 x 10 reps each for strengthening the LEs in order to improve patient's functional mobility. Patient still very weak in LEs and HIPS and has balance deficits. Patient was left in bedside chair with call light within reach and chair alarm tested and attached to patient. Patient was 1:1 with this PACU NURSE for 19 minutes total. SUNIL MARTINEZ present for treatment as witness. JOSE HUNTLEY PACU NURSE
--- NOTE | 2019-06-07 11:07 | NUR ---
Patient accepted to [facility] [place], asked to start precert. Facility is stating they started precert, but [facility] is experiencing a nationwide outage and expect it to be restored in a couple of hours. Waiting for auth.
[2019-06-07 12:00] VITALS: BP 160/90
--- NOTE | 2019-06-07 13:38 | NUR ---
EVA completed HENS. Chase omrel. -EVA Rush
--- NOTE | 2019-06-07 15:18 | NUR ---
PT RESTING QUIETLY, NO NEEDS AT THIS TIME
[2019-06-07 16:00] VITALS: BP 135/86
--- NOTE | 2019-06-07 16:19 | NUR ---
OCCUPATIONAL THERAPY CO-SIGN I approve of the Occupational Therapy notes written above. FELICIANO BROOKS OTR/Monik
--- NOTE | 2019-06-07 16:27 | NUR ---
PHYSICAL THERAPY CO-SIGN I approve of the Physical Therapy notes written above. GINA BARRETT PT,DPT
[2019-06-07 20:00] VITALS: BP 124/74
[2019-06-08] VITALS: BP 141/73
[2019-06-08 06:06] LABS: BASO # 0.1 10*3/uL (0.0-0.1); BASO % 0.9 % (0.0-1.0); EOS # 0.1 10*3/uL (0.0-0.4); EOS % 2.1 % (1.0-4.0); HEMATOCRIT 35.6 % (42.0-52.0); HEMOGLOBIN 12.1 g/dl (14.0-18.0); LYMPH # 1.8 10*3/uL (1.3-4.4); LYMPH % 26.4 % (27.0-41.0); MEAN CELL VOLUME 102.9 fl (80.0-94.0); MEAN PLATELET VOLUME 9.5 fl (9.6-12.3); MONO # 1.1 10*3/uL (0.1-1.0); MONO % 16.4 % (3.0-9.0); NEUT # 3.6 10*3/uL (2.3-7.9); NEUT % 53.6 % (47.0-73.0); PLATELET COUNT AUTOMATED 311 10*3/uL (130-400); RED BLOOD COUNT 3.46 10*6/uL (4.50-5.90); RED CELL DISTRI WIDTH 13.2 % (0-14.5); WHITE BLOOD COUNT 6.6 10*3/uL (4.8-10.8)
[2019-06-08 08:00] VITALS: BP 144/90
--- NOTE | 2019-06-08 09:00 | NUR ---
Preschool Principal in to see patient. No new needs or request at this time. When medically stable and precert is obtained he will be discharged to [facility]. process planner following.
--- NOTE | 2019-06-08 10:53 | NUR ---
OT NOTE Pt was seen this A.M. 1:1 for 24 minute OT session. Upon arrival pt was sitting upright in the recliner. Pt identified by name and and had no complaints at this time. Pt completed sit to stand transfer from chair level with Dakota and max verbal prompts for proper hand placement for increased I and improved technique, pt had poor carry over throughout. Functional mobility completed into the bathroom with Dakota due to being very impulsive and reaching for various unsafe items throughout the room. Educated pt on importance and safety concerns and pt continued to complete throughout session. Pt transferred on to the standard commode with Dakota due to poor safety with safe sitting before to the surface. Pt then transferred off standard commode with Dakota and use of grab bar for UE support. Pt stood sink side while washing his hands with CGA for safety. Functional mobility completed back to the recliner with Dakota BANK WORKER and poor safety carry over. Again when sitting pt required Dakota due to poor safety and attempting to sit to soon. Pt then completed BUE towel exercises over all planes of motion for 1 X 15 with emphasis on tricpes to increase UE strength needed for increased I in self care tasks and functional transfers. Pt was left sitting upright in the recliner with call light in hand, tray table in place, and body alarm on for safety. Continue with rec D/C plan to SNF. SUNIL Wiggins/Monik
--- NOTE | 2019-06-08 11:16 | NUR ---
PHYSICAL THERAPY PT SITTING IN RELCINER UPON ARRIVAL. PT IDENTIFIED BY NAME AND DATE OF . PT AGREED TO ALL PT TREATMENT THIS VISIT. PT HAD NO C/O THIS VISIT. PT PERFORMED 5 STS WITH YOUSUF X1 DUE TO PT WAS UNSTEADY AND UNSAFE WITH ALL STS. PT REQUIRED VC'S FOR PROPER TECHNIQUE AND SAFETY. PT ONCE ON FEET WOULD HAVE RETRO POSTURE AND TEND TO HAVE LOB BW. VC'S AND EDUCATION ON PROPER SAFETY AND TECHNIQUE GIVEN. PT GAIT TRAINED 10FT X2 WHILE FURNISURE WALKING AND WALL WALKING WITH CGA/YOUSUF DUE TO PT IS UNSTEADY AND HAS IMPULSIVE MOVEMENTS. PT EDUCATED TO WALK SLOWER AND SAFER DUE TO PT BEINF UNSTEADY. PT PERFORMED THE FOLLOWING SEATED EXERCISES 20X EACH WITH VC'S AND DEMO FOR EACH TASK LAQ, MARCH, GLUT SET. EACH EXERCISE DONE TO INCREASE LE STRENGTH TO HELP WITH STS AND BALANCE. PT IN CHAIR WITH BODY ALARM ON AT END OF SESSION. PT HAD CALL LIGHT HIS SIDE. PT SEEN 1:1 FOR 24 MINS. PAWAN YEN PTA
[2019-06-08 12:00] VITALS: BP 135/80
--- NOTE | 2019-06-08 13:15 | NUR ---
EVA recieved notice the patient has been accepted to [facility] and can go when medically stable. EVA reached out to the patients next of Kin, Pat, she stated that the patients father or his girlfriend would be able to transport him to [facility] once discharged. Hospitalist RN Coordinatior notified of receiving auth. -EVA Rush
[2019-06-08] MEDS ORDERED: LOPRESSOR25 MG PO (13:36)
[2019-06-08] MEDS ORDERED: AUGMENTIN 875875 MG PO (13:36)
--- NOTE | 2019-06-08 13:51 | NUR ---
DEVELOPMENTAL BEHAVIORAL PHYSICIAN received notice of patients discharge. DEVELOPMENTAL BEHAVIORAL PHYSICIAN spoke with RN-Viviana. She stated she could have discharged completed by 3:00p. DEVELOPMENTAL BEHAVIORAL PHYSICIAN contacted next of Kin, Pat, to inform her of the discharge. She stated she would contact her to inform him. DEVELOPMENTAL BEHAVIORAL PHYSICIAN received call back from the patient next of Kin, she stated that the patient girlfriend would be here at 3:15p to transport the patient to [facility]. Almita at [facility] has been notified.- EVA Rush
--- NOTE | 2019-06-08 15:18 | NUR ---
Faxed over discharge orders to [facility]. -EVA Rush
--- NOTE | 2019-06-08 15:45 | NUR ---
PHYSICAL THERAPY CO-SIGN I approve of the Physical Therapy notes written above. GINA BARRETT PT, DPT
--- NOTE | 2019-06-08 15:46 | NUR ---
Discharge instructions reviewed with patient/family. Patient receptive and verbalizes understanding. Follow-up care arranged. Written instructions given to patient/family. Patient and friend were educated on new prescriptions and follow up visits. Patient was wheeled from unit by staff member with all personal belongings accounted for. PRETTY HONG
--- NOTE | 2019-06-08 16:20 | NUR ---
Two failed attempts to call nurse to nurse report to [facility].
== END 2019-06-08 15:46 | disposition other institution (70) | DRG 70 ==
LOC: ED 03:15 → 5E 05:32 → EDHOLD 05:32 → ICCU 05:32 → 5E 06-06 13:28
PROVIDERS: Family Medicine; Student in an Organized Health Care Education/Training Program; ADMIT Internal Medicine
DX: G93.41 Metabolic encephalopathy (principal); J69.0 Pneumonitis due to inhalation of food and vomit; E43 Unspecified severe protein-calorie malnutrition; F10.231 Alcohol dependence with withdrawal delirium; E87.1 Hypo-osmolality and hyponatremia; R17 Unspecified jaundice; G61.81 Chronic inflammatory demyelinating polyneuritis; Z68.1 Body mass index [BMI] 19.9 or less, adult; J84.9 Interstitial pulmonary disease, unspecified; G40.909 Epilepsy, unspecified, not intractable, without status epilepticus; R00.0 Tachycardia, unspecified; F17.200 Nicotine dependence, unspecified, uncomplicated; E83.42 Hypomagnesemia; D53.9 Nutritional anemia, unspecified; E87.6 Hypokalemia; R73.9 Hyperglycemia, unspecified; R74.8 Abnormal levels of other serum enzymes; Z71.6 Tobacco abuse counseling; Z82.49 Family history of ischemic heart disease and other diseases of the circulatory system

== ENCOUNTER 2020-08-17 17:21 | Inpatient (IN) | payer OTHER ==
[~2020-08-17] VITALS: Ht 175.3 cm; Wt 61.0 kg
[2020-08-17 17:21] VITALS: BP 135/90
[~2020-08-17 17:21] MED LIST changes: +AUGMENTIN 875875 MG PO; +LOPRESSOR25 MG PO
[2020-08-17 17:57] LABS: BASO # 0.1 10*3/uL (0.0-0.1); BASO % 0.8 % (0.0-1.0); EOS # 0.1 10*3/uL (0.0-0.4); EOS % 0.8 % (1.0-4.0); HEMATOCRIT 44.7 % (42.0-52.0); LYMPH # 1.6 10*3/uL (1.3-4.4); LYMPH % 20.4 % (27.0-41.0); MEAN CELL VOLUME 99.3 fl (80.0-94.0); MEAN CORPUSCULAR HGB 35.1 pg (27.0-31.0); MEAN CORPUSCULAR HGB CONC 35.3 g/dl (33.0-37.0); MEAN PLATELET VOLUME 9.7 fl (9.6-12.3); MONO # 1.1 10*3/uL (0.1-1.0); MONO % 14.2 % (3.0-9.0); NEUT # 4.8 10*3/uL (2.3-7.9); NEUT % 63.4 % (47.0-73.0); PLATELET COUNT AUTOMATED 153 10*3/uL (130-400); RED CELL DISTRI WIDTH 12.3 % (0-14.5); WHITE BLOOD COUNT 7.6 10*3/uL (4.8-10.8)
[2020-08-17 18:08] LABS: ACT PARTIAL THROMBO TIME 29.1 SECONDS (20.0-32.1)
[2020-08-17 18:21] LABS: ALBUMIN 3.5 gm/dl (3.1-4.5); ALKALINE PHOSPHATASE 116 U/L (45-117); BUN 4 mg/dl (7-24); CHLORIDE 96 mmol/L (98-107); CREATININE 0.86 mg/dL (0.70-1.30); POTASSIUM 3.5 mmol/L (3.5-5.1); SGOT/AST 59 IU/L (3-35); SGPT/ALT 61 U/L (12-78); SODIUM 131 mmol/L (136-145); TOTAL PROTEIN 8.2 gm/dL (6.4-8.2)
[2020-08-17 18:30] VITALS: BP 111/71
[2020-08-18] VITALS (7 sets, daily range): BP systolic 106–144; BP diastolic 69–95
[2020-08-18] MEDS ORDERED: NAPROSYN500 MG PO (00:43)
[2020-08-18 06:15] LABS: BASO % 0.5 % (0.0-1.0); EOS % 0.2 % (1.0-4.0); HEMATOCRIT 41.4 % (42.0-52.0); LYMPH # 1.7 10*3/uL (1.3-4.4); LYMPH % 19.8 % (27.0-41.0); MEAN CELL VOLUME 101.5 fl (80.0-94.0); MEAN CORPUSCULAR HGB 35.3 pg (27.0-31.0); MEAN CORPUSCULAR HGB CONC 34.8 g/dl (33.0-37.0); MEAN PLATELET VOLUME 10.4 fl (9.6-12.3); MONO # 1.1 10*3/uL (0.1-1.0); MONO % 12.7 % (3.0-9.0); NEUT # 5.7 10*3/uL (2.3-7.9); NEUT % 66.4 % (47.0-73.0); PLATELET COUNT AUTOMATED 151 10*3/uL (130-400); RED BLOOD COUNT 4.08 10*6/uL (4.50-5.90); RED CELL DISTRI WIDTH 12.6 % (0-14.5); WHITE BLOOD COUNT 8.5 10*3/uL (4.8-10.8)
[2020-08-18 06:16] LABS: ALBUMIN 3.2 gm/dl (3.1-4.5); BUN 7 mg/dl (7-24); CHLORIDE 100 mmol/L (98-107); CREATININE 0.73 mg/dL (0.70-1.30); POTASSIUM 4.1 mmol/L (3.5-5.1); SGOT/AST 48 IU/L (3-35); SGPT/ALT 48 U/L (12-78); SODIUM 135 mmol/L (136-145)
[2020-08-18 06:26] LABS: ALKALINE PHOSPHATASE 99 U/L (45-117); TOTAL PROTEIN 7.6 gm/dL (6.4-8.2)
[2020-08-18 06:51] LABS: VITAMIN D, 25-HYDROXY 24.3 ng/mL (30-100)
[2020-08-18 14:07] LABS: BILIRUBIN Negative (Negative); BLOOD Negative (Negative); CLARITY Clear (Clear); COLOR Orange (Yellow); GLUCOSE Negative (Negative); KETONE Trace (Negative); LEUKO ESTERASE Negative (Negative); NITRITE Negative (Negative); SPECIFIC GRAVITY 1.015 (1.001-1.030)
[2020-08-18 14:12] LABS: URINE AMPHETAMINES < 1000 (1000ng/ml); URINE BARBITURATES < 200 (200ng/ml); URINE BENZODIAZEPINES < 200 (200ng/ml); URINE CANNABINOIDS (THC) < 50 (50ng/ml); URINE COCAINE < 300 (300ng/ml); URINE METHADONE < 300 (300ng/ml); URINE OPIATES < 300 (300ng/ml)
[2020-08-18 14:15] LABS: WBC 0-2 wbc/hpf (0-5)
[2020-08-18 14:18] LABS: URINE PHENCYCLIDINE < 25 (25ng/ml)
[2020-08-19] VITALS: BP 125/92
[2020-08-19 04:00] VITALS: BP 144/89
[2020-08-19 05:59] LABS: BASO # 0.1 10*3/uL (0.0-0.1); BASO % 0.9 % (0.0-1.0); EOS # 0.1 10*3/uL (0.0-0.4); HEMATOCRIT 40.8 % (42.0-52.0); LYMPH # 1.8 10*3/uL (1.3-4.4); LYMPH % 25.8 % (27.0-41.0); MEAN CELL VOLUME 101.5 fl (80.0-94.0); MEAN CORPUSCULAR HGB 35.3 pg (27.0-31.0); MEAN CORPUSCULAR HGB CONC 34.8 g/dl (33.0-37.0); MEAN PLATELET VOLUME 10.1 fl (9.6-12.3); MONO % 14.4 % (3.0-9.0); NEUT % 57.5 % (47.0-73.0); PLATELET COUNT AUTOMATED 151 10*3/uL (130-400); RED BLOOD COUNT 4.02 10*6/uL (4.50-5.90); RED CELL DISTRI WIDTH 12.3 % (0-14.5); WHITE BLOOD COUNT 6.9 10*3/uL (4.8-10.8)
[2020-08-19 06:33] LABS: ALBUMIN 3.1 gm/dl (3.1-4.5); BUN 9 mg/dl (7-24); CHLORIDE 101 mmol/L (98-107); POTASSIUM 3.3 mmol/L (3.5-5.1); SODIUM 135 mmol/L (136-145)
[2020-08-19 06:36] LABS: ALKALINE PHOSPHATASE 92 U/L (45-117); CREATININE 0.66 mg/dL (0.70-1.30); SGOT/AST 44 IU/L (3-35); SGPT/ALT 47 U/L (12-78); TOTAL PROTEIN 7.5 gm/dL (6.4-8.2)
[2020-08-19 08:00] VITALS: BP 155/91
[2020-08-19 12:00] VITALS: BP 145/94
[2020-08-19 15:14] VITALS: BP 113/59
[2020-08-19 20:00] VITALS: BP 104/67
[2020-08-20] VITALS: BP 131/88
[2020-08-20 04:00] VITALS: BP 140/95
[2020-08-20 05:33] LABS: ALBUMIN 3.2 gm/dl (3.1-4.5); BUN 7 mg/dl (7-24); CHLORIDE 104 mmol/L (98-107); CREATININE 0.61 mg/dL (0.70-1.30); POTASSIUM 2.9 mmol/L (3.5-5.1); SGOT/AST 48 IU/L (3-35); SGPT/ALT 48 U/L (12-78); SODIUM 135 mmol/L (136-145); TOTAL PROTEIN 7.2 gm/dL (6.4-8.2)
[2020-08-20 05:34] LABS: ALKALINE PHOSPHATASE 84 U/L (45-117)
[2020-08-20 05:49] LABS: BASO # 0.1 10*3/uL (0.0-0.1); BASO % 0.7 % (0.0-1.0); EOS # 0.1 10*3/uL (0.0-0.4); EOS % 1.6 % (1.0-4.0); LYMPH # 1.5 10*3/uL (1.3-4.4); LYMPH % 21.7 % (27.0-41.0); MEAN CORPUSCULAR HGB 34.8 pg (27.0-31.0); MEAN CORPUSCULAR HGB CONC 34.1 g/dl (33.0-37.0); MEAN PLATELET VOLUME 10.1 fl (9.6-12.3); MONO % 13.7 % (3.0-9.0); NEUT # 4.2 10*3/uL (2.3-7.9); NEUT % 60.9 % (47.0-73.0); PLATELET COUNT AUTOMATED 156 10*3/uL (130-400); RED BLOOD COUNT 4.02 10*6/uL (4.50-5.90); RED CELL DISTRI WIDTH 12.1 % (0-14.5); WHITE BLOOD COUNT 6.9 10*3/uL (4.8-10.8)
[2020-08-20 08:00] VITALS: BP 129/87
[2020-08-20 12:00] VITALS: BP 134/64
[2020-08-20 16:00] VITALS: BP 119/75
[2020-08-20 18:22] LABS: BUN 9 mg/dl (7-24); CHLORIDE 105 mmol/L (98-107); CREATININE 0.85 mg/dL (0.70-1.30); SODIUM 138 mmol/L (136-145)
[2020-08-20 18:27] LABS: POTASSIUM 3.9 mmol/L (3.5-5.1)
[2020-08-20 20:00] VITALS: BP 113/78
[2020-08-21] VITALS: BP 135/89
[2020-08-21 04:00] VITALS: BP 138/95
[2020-08-21 06:32] LABS: BASO # 0.1 10*3/uL (0.0-0.1); BASO % 0.8 % (0.0-1.0); EOS # 0.1 10*3/uL (0.0-0.4); EOS % 1.7 % (1.0-4.0); HEMATOCRIT 43.4 % (42.0-52.0); LYMPH # 2.2 10*3/uL (1.3-4.4); LYMPH % 29.1 % (27.0-41.0); MEAN CELL VOLUME 102.4 fl (80.0-94.0); MEAN CORPUSCULAR HGB 35.4 pg (27.0-31.0); MEAN CORPUSCULAR HGB CONC 34.6 g/dl (33.0-37.0); MONO # 1.1 10*3/uL (0.1-1.0); NEUT % 52.9 % (47.0-73.0); PLATELET COUNT AUTOMATED 192 10*3/uL (130-400); RED BLOOD COUNT 4.24 10*6/uL (4.50-5.90); RED CELL DISTRI WIDTH 12.3 % (0-14.5); WHITE BLOOD COUNT 7.6 10*3/uL (4.8-10.8)
[2020-08-21 06:43] LABS: BUN 9 mg/dl (7-24); CHLORIDE 106 mmol/L (98-107); CREATININE 0.65 mg/dL (0.70-1.30); POTASSIUM 3.9 mmol/L (3.5-5.1); SODIUM 138 mmol/L (136-145)
[2020-08-21 08:00] VITALS: BP 151/98
[2020-08-21 12:00] VITALS: BP 106/70
[2020-08-21 16:00] VITALS: BP 115/79
[2020-08-21 20:00] VITALS: BP 116/78
[2020-08-22] VITALS: BP 129/84
[2020-08-22 04:00] VITALS: BP 155/98
[2020-08-22 05:49] LABS: BUN 9 mg/dl (7-24); CHLORIDE 106 mmol/L (98-107); CREATININE 0.85 mg/dL (0.70-1.30); POTASSIUM 3.9 mmol/L (3.5-5.1); SODIUM 138 mmol/L (136-145)
[2020-08-22 06:29] LABS: BASO # 0.1 10*3/uL (0.0-0.1); BASO % 1.1 % (0.0-1.0); EOS # 0.1 10*3/uL (0.0-0.4); HEMATOCRIT 41.3 % (42.0-52.0); LYMPH # 1.6 10*3/uL (1.3-4.4); LYMPH % 21.8 % (27.0-41.0); MEAN CELL VOLUME 103.3 fl (80.0-94.0); MEAN CORPUSCULAR HGB 35.3 pg (27.0-31.0); MEAN CORPUSCULAR HGB CONC 34.1 g/dl (33.0-37.0); MONO % 13.5 % (3.0-9.0); NEUT # 4.4 10*3/uL (2.3-7.9); PLATELET COUNT AUTOMATED 195 10*3/uL (130-400); RED CELL DISTRI WIDTH 12.2 % (0-14.5); WHITE BLOOD COUNT 7.2 10*3/uL (4.8-10.8)
[2020-08-22 08:00] VITALS: BP 133/94
[2020-08-22 12:00] VITALS: BP 121/78
[2020-08-22 16:00] VITALS: BP 119/70
[2020-08-22 20:00] VITALS: BP 120/66
[2020-08-23] VITALS: BP 158/97
[2020-08-23 08:00] VITALS: BP 130/96
[2020-08-23 08:42] LABS: BASO # 0.1 10*3/uL (0.0-0.1); EOS # 0.1 10*3/uL (0.0-0.4); EOS % 1.8 % (1.0-4.0); HEMATOCRIT 40.9 % (42.0-52.0); LYMPH # 1.7 10*3/uL (1.3-4.4); LYMPH % 21.2 % (27.0-41.0); MEAN CELL VOLUME 102.5 fl (80.0-94.0); MEAN CORPUSCULAR HGB 35.1 pg (27.0-31.0); MEAN CORPUSCULAR HGB CONC 34.2 g/dl (33.0-37.0); MEAN PLATELET VOLUME 9.5 fl (9.6-12.3); MONO # 1.1 10*3/uL (0.1-1.0); MONO % 13.8 % (3.0-9.0); NEUT # 4.9 10*3/uL (2.3-7.9); NEUT % 61.7 % (47.0-73.0); PLATELET COUNT AUTOMATED 223 10*3/uL (130-400); RED BLOOD COUNT 3.99 10*6/uL (4.50-5.90); RED CELL DISTRI WIDTH 12.1 % (0-14.5); WHITE BLOOD COUNT 7.9 10*3/uL (4.8-10.8)
[2020-08-23 09:02] LABS: BUN 10 mg/dl (7-24); CHLORIDE 105 mmol/L (98-107); CREATININE 0.85 mg/dL (0.70-1.30); POTASSIUM 3.6 mmol/L (3.5-5.1); SODIUM 139 mmol/L (136-145)
== END 2020-08-23 13:12 | disposition left against medical advice (07) | DRG 770 ==
LOC: ED 17:21 → EDHOLD 19:06 → ICCU 19:06
PROVIDERS: Emergency Medicine; Student in an Organized Health Care Education/Training Program; ADMIT Emergency Medicine; ATTEND Emergency Medicine
DX: F10.131 Alcohol abuse with withdrawal delirium (principal); F10.121 Alcohol abuse with intoxication delirium; R00.0 Tachycardia, unspecified; E87.2 Acidosis; E87.1 Hypo-osmolality and hyponatremia; E83.41 Hypermagnesemia; R74.01 Elevation of levels of liver transaminase levels; Z71.6 Tobacco abuse counseling; E87.6 Hypokalemia; G63 Polyneuropathy in diseases classified elsewhere; Z53.29 Procedure and treatment not carried out because of patient's decision for other reasons; R44.3 Hallucinations, unspecified; E44.0 Moderate protein-calorie malnutrition; R56.9 Unspecified convulsions; D75.89 Other specified diseases of blood and blood-forming organs; F17.210 Nicotine dependence, cigarettes, uncomplicated; Z82.49 Family history of ischemic heart disease and other diseases of the circulatory system; Z68.1 Body mass index [BMI] 19.9 or less, adult

== ENCOUNTER 2021-02-09 01:11 | Inpatient (IN) | payer OTHER ==
[2021-02-09] VITALS (7 sets, daily range): BP systolic 104–150; BP diastolic 60–99
[~2021-02-09] VITALS: Ht 175.2 cm; Wt 62.3 kg
[~2021-02-09 01:11] MED LIST changes: +NAPROSYN500 MG PO
[2021-02-09 01:55] LABS: BASO % 0.4 % (0.0-1.0); EOS % 0.4 % (1.0-4.0); HEMATOCRIT 49.5 % (42.0-52.0); LYMPH # 1.4 10*3/uL (1.3-4.4); LYMPH % 15.2 % (27.0-41.0); MEAN CELL VOLUME 96.3 fl (80.0-94.0); MEAN CORPUSCULAR HGB CONC 35.4 g/dl (33.0-37.0); MONO # 0.8 10*3/uL (0.1-1.0); MONO % 8.5 % (3.0-9.0); NEUT % 74.9 % (47.0-73.0); PLATELET COUNT AUTOMATED 160 10*3/uL (130-400); RED BLOOD COUNT 5.14 10*6/uL (4.50-5.90); WHITE BLOOD COUNT 9.3 10*3/uL (4.8-10.8)
[2021-02-09 02:10] LABS: ALBUMIN 4.1 gm/dl (3.1-4.5); ALKALINE PHOSPHATASE 127 U/L (45-117); BUN 9 mg/dl (7-24); CHLORIDE 90 mmol/L (98-107); CREATININE 0.94 mg/dL (0.70-1.30); POTASSIUM 2.9 mmol/L (3.5-5.1); SGOT/AST 55 IU/L (3-35); SGPT/ALT 73 U/L (12-78); SODIUM 131 mmol/L (136-145); TOTAL PROTEIN 9.2 gm/dL (6.4-8.2)
[2021-02-09 02:25] LABS: ETHYL ALCOHOL < 3.0 mg/dl (<3)
[2021-02-09] MEDS ORDERED: TUMS300 MG PO (06:00)
[2021-02-09 06:12] LABS: BASO % 0.2 % (0.0-1.0); EOS % 0.4 % (1.0-4.0); LYMPH # 1.2 10*3/uL (1.3-4.4); LYMPH % 14.6 % (27.0-41.0); MEAN CELL VOLUME 97.2 fl (80.0-94.0); MEAN CORPUSCULAR HGB 33.9 pg (27.0-31.0); MEAN CORPUSCULAR HGB CONC 34.9 g/dl (33.0-37.0); MEAN PLATELET VOLUME 10.4 fl (9.6-12.3); MONO % 11.7 % (3.0-9.0); NEUT # 6.2 10*3/uL (2.3-7.9); NEUT % 72.6 % (47.0-73.0); PLATELET COUNT AUTOMATED 152 10*3/uL (130-400); RED BLOOD COUNT 4.22 10*6/uL (4.50-5.90); RED CELL DISTRI WIDTH 12.9 % (0-14.5); WHITE BLOOD COUNT 8.5 10*3/uL (4.8-10.8)
[2021-02-09 06:17] LABS: ALBUMIN 3.1 gm/dl (3.1-4.5); ALKALINE PHOSPHATASE 95 U/L (45-117); BUN 8 mg/dl (7-24); CHLORIDE 97 mmol/L (98-107); CREATININE 0.76 mg/dL (0.70-1.30); POTASSIUM 3.2 mmol/L (3.5-5.1); SGOT/AST 48 IU/L (3-35); SGPT/ALT 58 U/L (12-78); SODIUM 133 mmol/L (136-145)
[2021-02-09 06:22] LABS: ACT PARTIAL THROMBO TIME 27.7 SECONDS (20.0-32.1)
== END 2021-02-09 15:30 | disposition left against medical advice (07) | DRG 770 ==
LOC: ED 01:11 → EDHOLD 04:39 → ICCU 04:39
PROVIDERS: Emergency Medicine; Hospitalist; ADMIT Internal Medicine; ATTEND Internal Medicine
DX: F10.232 Alcohol dependence with withdrawal with perceptual disturbance (principal); E44.0 Moderate protein-calorie malnutrition; E87.6 Hypokalemia; E87.2 Acidosis; E83.41 Hypermagnesemia; F17.210 Nicotine dependence, cigarettes, uncomplicated; Z82.49 Family history of ischemic heart disease and other diseases of the circulatory system; R56.9 Unspecified convulsions; Z79.899 Other long term (current) drug therapy; E87.1 Hypo-osmolality and hyponatremia; R74.01 Elevation of levels of liver transaminase levels; G63 Polyneuropathy in diseases classified elsewhere; Z53.29 Procedure and treatment not carried out because of patient's decision for other reasons; Z68.20 Body mass index [BMI] 20.0-20.9, adult

== ENCOUNTER 2021-04-19 01:33 | Inpatient (IN) | payer OTHER ==
[2021-04-19] VITALS (8 sets, daily range): BP systolic 125–150; BP diastolic 76–100
[~2021-04-19] VITALS: Ht 177.8 cm; Wt 64.1 kg
[~2021-04-19 01:33] MED LIST changes: +TUMS300 MG PO
[2021-04-19 01:47] LABS: BASO % 0.2 % (0.0-1.0); EOS % 0.1 % (1.0-4.0); HEMATOCRIT 43.1 % (42.0-52.0); LYMPH # 1.7 10*3/uL (1.3-4.4); LYMPH % 16.1 % (27.0-41.0); MEAN CELL VOLUME 94.7 fl (80.0-94.0); MEAN CORPUSCULAR HGB 34.3 pg (27.0-31.0); MEAN CORPUSCULAR HGB CONC 36.2 g/dl (33.0-37.0); MEAN PLATELET VOLUME 9.8 fl (9.6-12.3); MONO # 1.3 10*3/uL (0.1-1.0); MONO % 12.5 % (3.0-9.0); NEUT # 7.3 10*3/uL (2.3-7.9); NEUT % 70.7 % (47.0-73.0); PLATELET COUNT AUTOMATED 119 10*3/uL (130-400); RED BLOOD COUNT 4.55 10*6/uL (4.50-5.90); RED CELL DISTRI WIDTH 12.6 % (0-14.5); WHITE BLOOD COUNT 10.3 10*3/uL (4.8-10.8)
[2021-04-19 02:02] LABS: ALBUMIN 3.1 gm/dl (3.1-4.5); ALKALINE PHOSPHATASE 121 U/L (45-117); BUN 9 mg/dl (7-24); CHLORIDE 79 mmol/L (98-107); CREATININE 0.88 mg/dL (0.70-1.30); POTASSIUM 3.1 mmol/L (3.5-5.1); SGOT/AST 92 IU/L (3-35); SGPT/ALT 86 U/L (12-78); SODIUM 124 mmol/L (136-145)
[2021-04-19 03:03] LABS: BILIRUBIN 1+ (Negative); BLOOD Negative (Negative); CLARITY Clear (Clear); COLOR Dark Yellow (Yellow); GLUCOSE Negative (Negative); KETONE 3+ (Negative); LEUKO ESTERASE Negative (Negative); NITRITE Negative (Negative); PH 5.5 (4.5-8.0); SPECIFIC GRAVITY 1.025 (1.001-1.030)
[2021-04-19 03:12] LABS: URINE AMPHETAMINES < 1000 (1000ng/ml); URINE BARBITURATES < 200 (200ng/ml); URINE BENZODIAZEPINES < 200 (200ng/ml); URINE CANNABINOIDS (THC) > 50 (50ng/ml); URINE COCAINE < 300 (300ng/ml); URINE METHADONE < 300 (300ng/ml); URINE OPIATES < 300 (300ng/ml)
[2021-04-19 03:17] LABS: HYALINE CAST 16-20
[2021-04-19 03:18] LABS: URINE PHENCYCLIDINE < 25 (25ng/ml)
[2021-04-19 07:42] LABS: MEAN CELL VOLUME 94.6 fl (80.0-94.0); MEAN CORPUSCULAR HGB 34.5 pg (27.0-31.0); MEAN CORPUSCULAR HGB CONC 36.4 g/dl (33.0-37.0); MEAN PLATELET VOLUME 10.4 fl (9.6-12.3); PLATELET COUNT AUTOMATED 118 10*3/uL (130-400); RED BLOOD COUNT 4.44 10*6/uL (4.50-5.90); RED CELL DISTRI WIDTH 12.8 % (0-14.5); WHITE BLOOD COUNT 11.6 10*3/uL (4.8-10.8)
[2021-04-19 07:48] LABS: ALBUMIN 3.2 gm/dl (3.1-4.5); ALKALINE PHOSPHATASE 111 U/L (45-117); BUN 11 mg/dl (7-24); CHLORIDE 81 mmol/L (98-107); CREATININE 0.73 mg/dL (0.70-1.30); POTASSIUM 3.2 mmol/L (3.5-5.1); SGOT/AST 83 IU/L (3-35); SGPT/ALT 78 U/L (12-78); SODIUM 125 mmol/L (136-145); TOTAL PROTEIN 7.5 gm/dL (6.4-8.2)
[2021-04-19 07:51] LABS: ATYPICAL LYMPHS 1 % (0-0); PLATELET SUFFICIENCY LOW (NORMAL); TOTAL CELLS COUNTED 100 #CELLS
[2021-04-19 07:52] LABS: POLYCHROMASIA SLIGHT
[2021-04-19 14:14] LABS: BUN 11 mg/dl (7-24); CHLORIDE 86 mmol/L (98-107); POTASSIUM 3.3 mmol/L (3.5-5.1); SODIUM 128 mmol/L (136-145)
[2021-04-20] VITALS: BP 149/101
[2021-04-20 06:07] LABS: BUN 13 mg/dl (7-24); CHLORIDE 92 mmol/L (98-107); CREATININE 0.58 mg/dL (0.70-1.30); POTASSIUM 3.1 mmol/L (3.5-5.1); SODIUM 129 mmol/L (136-145)
[2021-04-20 08:00] VITALS: BP 131/76
[2021-04-20 12:00] VITALS: BP 127/87
[2021-04-20 16:00] VITALS: BP 156/90
[2021-04-20 20:00] VITALS: BP 147/89
[2021-04-21] VITALS: BP 135/86
[2021-04-21 06:16] LABS: BUN 10 mg/dl (7-24); CHLORIDE 92 mmol/L (98-107); CREATININE 0.58 mg/dL (0.70-1.30); SODIUM 131 mmol/L (136-145)
== END 2021-04-21 08:12 | disposition left against medical advice (07) | DRG 133 ==
LOC: ED 01:33 → EDHOLD 04:38 → 4E 04:38
PROVIDERS: Internal Medicine; Student in an Organized Health Care Education/Training Program; ADMIT Internal Medicine; ATTEND Internal Medicine
DX: J96.00 Acute respiratory failure, unspecified whether with hypoxia or hypercapnia (principal); F10.932 Alcohol use, unspecified with withdrawal with perceptual disturbance; E87.1 Hypo-osmolality and hyponatremia; R56.9 Unspecified convulsions; E87.6 Hypokalemia; R74.01 Elevation of levels of liver transaminase levels; E87.8 Other disorders of electrolyte and fluid balance, not elsewhere classified; D75.89 Other specified diseases of blood and blood-forming organs; F17.210 Nicotine dependence, cigarettes, uncomplicated; E55.9 Vitamin D deficiency, unspecified; Y90.3 Blood alcohol level of 60-79 mg/100 ml; F10.921 Alcohol use, unspecified with intoxication delirium; Z53.29 Procedure and treatment not carried out because of patient's decision for other reasons; I10 Essential (primary) hypertension; F12.90 Cannabis use, unspecified, uncomplicated; R73.9 Hyperglycemia, unspecified; Z71.6 Tobacco abuse counseling; Z82.49 Family history of ischemic heart disease and other diseases of the circulatory system; Z79.899 Other long term (current) drug therapy

== ENCOUNTER 2023-01-02 17:12 | Emergency (ER) | payer OTHER ==
[~2023-01-02] VITALS: Ht 177.8 cm; Wt 63.5 kg
[~2023-01-02 17:12] MED LIST changes: +ATARAX,VISTARIL50 MG PO; +NATURE'S BLEND F1 MG PO; +NICODERM CQ1 EAC2 T; +THERA TABLET400 MCG PO; +VITAMIN B-1100 M1 PO
[2023-01-02 17:25] VITALS: BP 103/73
[2023-01-02 17:38] LABS: HEMATOCRIT 30.4 % (42.0-52.0); MEAN CELL VOLUME 85.2 fl (80.0-94.0); MEAN CORPUSCULAR HGB 29.1 pg (27.0-31.0); MEAN CORPUSCULAR HGB CONC 34.2 g/dl (33.0-37.0); MEAN PLATELET VOLUME 8.5 fl (9.6-12.3); PLATELET COUNT AUTOMATED 605 10*3/uL (130-400); RED BLOOD COUNT 3.57 10*6/uL (4.50-5.90); RED CELL DISTRI WIDTH 14.2 % (0-14.5); WHITE BLOOD COUNT 35.9 10*3/uL (4.8-10.8)
[2023-01-02 17:39] LABS: MANUAL DIFF REFLEX YES
[2023-01-02 17:58] LABS: ALKALINE PHOSPHATASE 81 U/L (46-116); BUN 15 mg/dl (9-23); CHLORIDE 91 mmol/L (98-107); POTASSIUM 3.5 mmol/L (3.4-5.1); SGPT/ALT 36 U/L (10-49); TOTAL PROTEIN 6.8 gm/dL (6.0-8.0)
[2023-01-02 18:00] LABS: TOTAL CELLS COUNTED 100 #CELLS
[2023-01-02 18:01] LABS: PLATELET SUFFICIENCY HIGH (NORMAL)
[2023-01-02 18:11] VITALS: BP 99/63
[2023-01-02 18:52] VITALS: BP 106/64
[2023-01-02 19:22] VITALS: BP 92/61
[2023-01-03] VITALS (7 sets, daily range): BP systolic 96–131; BP diastolic 50–89
[2023-01-03 00:44] LABS: BUN 15 mg/dl (9-23); CHLORIDE 94 mmol/L (98-107); POTASSIUM 3.8 mmol/L (3.4-5.1)
== END 2023-01-03 22:28 | disposition admitted as inpatient to this hospital (09) ==
LOC: ED 17:12 → EDHOLD 18:12 → ED 18:12 → EDHOLD 18:29 → ICCU 19:57 → EDHOLD 19:57 → ICCU 23:55 → EDHOLD 01-03 04:24 → ED 01-03 22:28
PROVIDERS: Internal Medicine; Student in an Organized Health Care Education/Training Program
DX: R65.20 Severe sepsis without septic shock (principal); E87.1 Hypo-osmolality and hyponatremia; E87.20 Acidosis, unspecified; J18.9 Pneumonia, unspecified organism; J44.9 Chronic obstructive pulmonary disease, unspecified; F17.210 Nicotine dependence, cigarettes, uncomplicated; F10.10 Alcohol abuse, uncomplicated; F12.90 Cannabis use, unspecified, uncomplicated

== ENCOUNTER → 2023-02-02 | Outpatient (CLI) | payer OTHER | LOC: CARD 08:17 | PROVIDERS: ATTEND Family Medicine | DX: J90 Pleural effusion, not elsewhere classified (principal); R01.2 Other cardiac sounds ==

== ENCOUNTER → 2025-01-29 | Outpatient (CLI) | payer OTHER | END | disposition home or self-care (01) | LOC: US 01-25 13:30 | DX: I65.23 Occlusion and stenosis of bilateral carotid arteries (principal); I99.9 Unspecified disorder of circulatory system ==

== ENCOUNTER → 2025-02-08 | Outpatient (CLI) | payer OTHER ==
[~2025-02-08] MED LIST changes: +IOHEXOL 350 MG/ML 100 ML VIAL IV ONE; +SODIUM CHLORIDE 0.9% 100 ML BAG IV ONE; +SODIUM CHLORIDE 0.9% 100 ML IV ONE
== END | disposition home or self-care (01) ==
LOC: CT 09:00
PROVIDERS: ATTEND Family Medicine
DX: I65.23 Occlusion and stenosis of bilateral carotid arteries (principal); J43.9 Emphysema, unspecified